=== PATIENT | female | born 1960 | race Caucasian/White ===

== ENCOUNTER 2017-12-31 20:34 | Emergency (ER) | payer MEDICAID ==
[~2017-12-31] VITALS: Ht 162.6 cm; Wt 56.7 kg
[~2017-12-31 20:34] MED LIST: ABAC300; ACET325; ALBU90OI INH; ALUMAG30SU PO; CLIN150 PO; CLOP75 PO; CYAN1000 PO; DOXY100 PO; FOLI1 PO; HYDACE5 PO; HYDR1TAB94 PO; IBUHYD PO; Norco 5-325 Ta1 EACH PO; OMEP20ER PO; POTCHL20ER PO; Percocet 5-3251 EACH PO; RXERYTOPTH OP; SULTRIDS PO; TYLENOL PM EX-1 EAC1 PO; Valium5 MG PO; Ventolin5 MG/1 ML INH; WARF7.5 PO
[2017-12-31] MEDS ORDERED: Keflex500 MG PO (21:24)
[2017-12-31] MEDS ORDERED: ALBU90OI61 INH (21:24)
== END 2017-12-31 21:49 | disposition home or self-care (01) ==
LOC: ER 20:34
DX: S80.12XA Contusion of left lower leg, initial encounter (principal); F10.10 Alcohol abuse, uncomplicated; J40 Bronchitis, not specified as acute or chronic; J98.01 Acute bronchospasm; F17.210 Nicotine dependence, cigarettes, uncomplicated; W19.XXXA Unspecified fall, initial encounter; J44.9 Chronic obstructive pulmonary disease, unspecified
CPT/HCPCS: 99283

== ENCOUNTER 2017-12-31 22:22 | Emergency (ER) | payer MEDICAID ==
[~2017-12-31] VITALS: Ht 162.6 cm; Wt 59.0 kg
[~2017-12-31 22:22] MED LIST changes: +ALBU90OI61 INH; +Keflex500 MG PO
== END 2018-01-01 04:31 | disposition home or self-care (01) ==
LOC: ER 22:22
DX: S50.01XA Contusion of right elbow, initial encounter (principal); S00.81XA Abrasion of other part of head, initial encounter; W18.30XA Fall on same level, unspecified, initial encounter; Z79.2 Long term (current) use of antibiotics; J44.9 Chronic obstructive pulmonary disease, unspecified; F17.210 Nicotine dependence, cigarettes, uncomplicated
CPT/HCPCS: 70450; 72125; 73080; 90471; 90714; 99284

== ENCOUNTER 2018-04-10 16:20 | Emergency (ER) | payer SELFPAY ==
[~2018-04-10] VITALS: Ht 162.6 cm; Wt 56.7 kg
[2018-04-10] MEDS ORDERED: IBUP400 PO (16:43)
== END 2018-04-10 18:06 | disposition home or self-care (01) ==
LOC: ER 16:20
DX: S00.81XA Abrasion of other part of head, initial encounter (principal); W01.198A Fall on same level from slipping, tripping and stumbling with subsequent striking against other object, initial encounter; J44.9 Chronic obstructive pulmonary disease, unspecified; F17.210 Nicotine dependence, cigarettes, uncomplicated
CPT/HCPCS: 70450; 96372; 99284-25; J1885